=== PATIENT | female | born 1965 | race Caucasian/White ===

== ENCOUNTER 2024-11-30 11:13 | Inpatient (IN) | payer OTHER, BC ==
[~2024-11-30] VITALS: Ht 154.9 cm; Wt 96.7 kg
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
[2024-11-30 12:34] LABS: MEAN PLATELET VOLUME 7.0 FL (7.4-10.4); RED CELL DISTRIBUTION WIDTH 14.2 % (11.5-14.5)
--- NOTE | 2024-11-30 12:40 | ELECTROCARDIOGRAPH REPORT ---
[facility] Test Date: 2024-11-30 Test Time: 12:38:03 Pat Name: GREGORY GRACE Department: [facility]- Patient ID: [facility]-[id number] Room: [place] [id number] Gender: F [employer] Maintenance Chief: : 1965 Requested By: DEEJAY RENDON Order Number: [id number] Reading MD: Dr. Klaus Goodman Measurements Intervals [place] Rate: 78 P: 37 OK: 161 QRS: 41 QRSD: 103 T: -10 QT: 422 QTc: 481 Interpretive Statements Sinus rhythm Probable left atrial enlargement Low voltage, precordial leads RSR' in V1 or V2, probably normal variant Borderline T abnormalities, inferior leads Electronically Signed On 12-03-2024 7:41:[address] Klaus Goodman Please click the below link to view image of tracing.
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
[2024-11-30 12:56] LABS: CREATINE KINASE MB 40.8 ng/ml (0.3-3.6); CREATININE 0.66 MG/DL (0.40-0.90); ETHANOL < 10 MG/DL (<10); TOTAL CARBON DIOXIDE 26.6 MMOL/L (24-32); eCRCL 69 ML/MIN; eGFR > 90 ML/MIN
[2024-11-30 13:01] LABS: APTT 29 SECONDS (22-32); INR 1.1 INR
[2024-11-30] MEDS ORDERED: magnesium sulf-water 2g/50mL 50 ML IV PRN (14:45)
[2024-11-30] MEDS ORDERED: magnesium Cl slow-release 64mg tablet PO PRN (14:45)
[2024-11-30] MEDS ORDERED: magnesium hydroxide 30ml (MOM) UD suspension PO PRN (14:45)
[2024-11-30] MEDS ORDERED: mag hydrox/Alum hydrox/simeth 30ml oral suspension PO PRN (14:45)
[2024-11-30] MEDS ORDERED: potassium Cl 40MEQ/1/2NS 520ml 520 ML IV PRN (14:45)
[2024-11-30] MEDS ORDERED: magnesium sulf-water 4G/100mL 100 ML IV PRN (14:45)
[2024-11-30] MEDS ORDERED: potassium Cl 20 mEq SR tablet PO PRN (14:45)
[2024-11-30] MEDS: PERFLUTREN PROTEIN-A MICROSPHR (Optison) 0.22 MG/ML 3ML VIAL IV ONE (14:55)
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
[2024-11-30 15:20] LABS: PRO BRAIN NATRIURETIC PEPTIDE 99 PG/ML (0-125)
[2024-11-30 15:21] LABS: LEUKOCYTE ESTERASE ,URINE NEGATIVE (Neg); NITRITES, URINE NEGATIVE (Neg); OCCULT BLOOD,URINE NEGATIVE (Neg)
[2024-11-30 15:22] LABS: UA COLLECTION TYPE CLN CATCH MIDSTREAM
--- NOTE | 2024-11-30 15:29 | RADIOLOGY REPORT ---
DI CHEST,TWO VIEWS, HISTORY: Metabolic encephalopathy COMPARISON: None None TECHNICAL DATA: 1 view of the chest was obtained. FINDINGS: Lines and tubes: None Cardiomediastinal silhouette: normal Pulmonary vasculature: normal Lung expansion: normal Lung airspace: normal Lung interstitium: normal Pleura: normal Pneumothorax: no Bones: Unremarkable Other: no IMPRESSION: No acute intrathoracic abnormality.
[2024-11-30 15:39] LABS: URINE AMPHETAMINE SCREEN NEGATIVE (Neg); URINE BARBITUATE SCREEN NEGATIVE (Neg); URINE BENZODIAZEPINES SCREEN POSITIVE (Neg); URINE CANNABINOID SCREEN NEGATIVE (Neg); URINE COCAINE SCREEN NEGATIVE (Neg); URINE METHADONE SCREEN NEGATIVE (Neg); URINE OPIATE SCREEN NEGATIVE (Neg); URINE PHENCYCLIDINE SCREEN NEGATIVE (Neg)
[2024-11-30] MEDS ORDERED: morphine 4 MG/ML inj SYRINge IV PRN (15:47)
[2024-11-30] MEDS: ondansetron/PF 4mg/2ml inj IV PRN (15:56)
[2024-11-30] MEDS: morphine 4 MG/ML inj SYRINge IV PRN (15:57)
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
[2024-11-30] MEDS: normal saline 1000ml 1,000 ML IV SCH (17:05)
[2024-11-30] MEDS: HYDROcodone/acetaminophen 5mg/325mg tablet PO PRN (19:19)
[2024-11-30] MEDS ORDERED: TRAM50TA2 PO (19:22)
[2024-11-30 20:00] VITALS: BP_SYST 133; BP_SYST 140; BP_SYST 147; BP_DIAS 72; BP_DIAS 96; BP_DIAS 97; PULSE 73; PULSE 74; PULSE 81
[2024-11-30] MEDS: docusate sod 100mg capsule PO SCH (20:00)
[2024-11-30] MEDS: K and/or MAG REPLACEMENT MC SCH (20:00)
[2024-11-30] MEDS ORDERED: heparin, porcine 5000 units/ml vial SQ SCH (20:00)
[2024-11-30 21:20] VITALS: BP 140/78; PULSE 97; RESP 13; TEMP 97.5; O2SAT 99
[2024-11-30 21:25] VITALS: RESP 13; O2SAT 99
[2024-11-30] MEDS: potassium Cl 20 mEq SR tablet PO PRN (21:50)
[2024-12-01] VITALS (9 sets, daily range): BP systolic 135–162; BP diastolic 69–96; PULSE 71–88; RESP 12–16; TEMP 97–98.4; O2SAT 94–99
[2024-12-01 06:02] LABS: MEAN PLATELET VOLUME 7.3 FL (7.4-10.4); RED CELL DISTRIBUTION WIDTH 14.2 % (11.5-14.5)
[2024-12-01 06:28] LABS: CHOL/HDL RATIO 5.4 (0.00-4.99); CREATININE 0.60 MG/DL (0.40-0.90); LDL CHOLESTEROL 153 MG/DL (50-100); TOTAL CARBON DIOXIDE 28.5 MMOL/L (24-32); eCRCL 76 ML/MIN; eGFR > 90 ML/MIN
[2024-12-01 10:07] LABS: ABSOLUTE RETICS # 23000 /CUMM (23000-93000)
--- NOTE | 2024-12-01 10:11 | RADIOLOGY REPORT ---
CLINICAL HISTORY: Encephalopathy vs seizure vs contusion TECHNIQUE: Routine multiplanar imaging of the brain was performed without gadolinium contrast. COMPARISON: CT CT HEAD on DOS: 11/30/24 FINDINGS: There is no abnormal restricted diffusion to suggest acute infarction. There are a few scattered punctate foci of T2 hyperintensity within the white matter both cerebral hemispheres, of doubtful clinical significance. The moderate-sized right parietal scalp soft tissue hematoma. Coronal images demonstrate no definite abnormal hippocampal volume loss/signal. There is no evidence for acute ischemic changes, mass, mass effect, or extra- axial fluid collection. There is no hydrocephalus or midline shift. The cerebral sulci and subarachnoid cisterns are not effaced. The imaged paranasal sinuses are clear. The globes are intact. The midline structures, including the corpus callosum, are unremarkable. The intracranial flow voids are maintained. IMPRESSION: No acute intracranial abnormality seen. No evidence for acute infarct. Moderate-sized right parietal scalp soft tissue hematoma.
--- NOTE | 2024-12-01 13:45 | PROCEDURE NOTE ---
Procedure Note Providers to CC ~ Description: [place] EEG Note # Demographics Type of EEG Read: - Routine EEG - video Patient Location: - Inpatient - STAT read requested First Name: Ivet Last Name: Campos Date of : 1965 Age: 59 Gender: Female Facility: [facility] Time of Initial Page (): 12/01/2024 11:31 First Contact with Site (): 12/01/2024 11:40 # EEG Interpretation Start Time of EEG Read (): 12/01/2024 10:48 Stop Time of EEG Read (): 12/01/2024 12:01 Duration: 1h 13m Technical Details: - The EEG electrodes were placed using the standard International 10-20 system of electrode placement. Video and an accessory EKG lead were used during the course of this study. - This study was recorded using the [employer] EEG software Indication: - altered mental status # Description Photic Stimulation: Performed Hyperventilation: NOT performed Phases Captured: - awake - drowsy - sleep Predominant Frequencies: During wakefulness, the background activity demonstrates a well-formed, symmetric posterior dominant rhythm (PDR) in the alpha frequency range (typically 810 Hz), maximal over the occipital regions, with appropriate attenuation upon eye opening and reappearance with eye closure. The anterior- posterior gradient is preserved, and no abnormal asymmetries or focal slowing are identified. During drowsiness (Stage I sleep), there is a gradual attenuation of the alpha rhythm, replaced by low-amplitude mixed-frequency theta activity, along with the appearance of vertex sharp transients and slow eye movements. Stage II was not captured. The background remains symmetric and reactive throughout the recording, with no focal abnormalities or generalized slowing noted during any state. Reactivity: yes Variability: yes Continuity: continuous EKG: NSR # Abnormalities Stimulation: - photic stimulation does NOT cause abnormalities Epileptiform Abnormalities: - NOT present Focal Slowing: no Seizure: - NOT present Artifact: muscle and movement # Impression Impression: normal # Clinical Correlation Clinical Correlation: A normal EEG does not exclude nor support the diagnosis of epilepsy. Additional Comments: Clinical correlation is recommended. # Log[employer] Telemedicine: remote EEG review: EEG reviewed remotely # Demographics First Name: Ivet Last Name: Campos Facility: [facility] DESTINY FLOYD MD Dec 01, 2024 13:45
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
--- NOTE | 2024-12-01 18:33 | CARDIOLOGY REPORT ---
APPROVED REPORT EXAM: Comprehensive 2D, Doppler, and color-flow Echocardiogram. Patient Location: 3024B Blood Pressure: 135/99 mmHg Heart Rate: 74 bpm Rhythm: Sinus Indications CVA (Bubble Study not ordered) Hypertension NO COMPUTATIONAL SCIENTIST NO Previous ECHO 2D Dimensions LA Diam 3.3 cm IVSd 0.7 (0.7-1.1cm) LVDd 5.0 cm PWd 0.9 (0.7-1.1cm) IVSs 1.2 (0.8-1.2cm) LVDs 2.8 (2.5-4.0cm) PWs 1.3 (0.8-1.2cm) LVOT Diameter 2.09 (1.8-2.4cm) LVEF(%) 74.3 (>50%) Ao Asc Diam. 3.09 cm IVC 16.76 mm FS (%) 43.4 % SV 87.6 ml CO 6.4 L/min M-Mode Dimensions Left Atrium(MM) 3.53 (2.5-4.0cm) Aortic Root 3.02 (2.2-3.7cm) MV EPSS 0.3 (<0.5cm) Aortic Valve AoV Peak Lenny. 157.8 cm/s AoV VTI 27.7 cm AO Peak GR. 10.0 mmHg AO Mean GR. 6 mmHg LVOT VTI 30.32 cm LVOT Peak Lenny. 130.6 cm/s ISHAAN(VTI)/BSA 3.75 cm2/m2 ISHAAN (VTI) 3.75 cm2 AV DI 1.10 % Mitral Valve MV E Velocity 54.3 cm/s MV Peak Gr. 2 mmHg MV DECEL TIME 316 ms MV A Velocity 61.8 cm/s MV PHT 128 ms E/A Ratio 0.9 MVA (PHT) 1.72 cm2 MV VMax 64.8 cm/s TDI Lateral E' P. V 10.90 cm/s E/Lateral E' 5.0 Tricuspid Valve TR P. Velocity 240 cm/s RAP ESTIMATE 10 mmHg TR Peak Gr. 23 mmHg RVSP 33 mmHg LEFT VENTRICLE Normal LV size and wall thickness. Overall systolic function is normal. LVEF is 70-75%. RIGHT VENTRICLE RV is normal size and function. Elevated right heart pressures with an RVSP of 33 mmHg. ATRIA The left atrium size is normal. AORTIC VALVE Trileaflet AV appears milldy sclerotic without stenosis. No insufficiency. MITRAL VALVE Mild mitral annular calcification without stenosis. TRICUSPID VALVE The tricuspid valve is normal in structure with mild regurgitation. PULMONIC VALVE Pulmonic valve is grossly normal in structure without insufficiency. GREAT VESSELS The aortic root is normal in size. The ascending aorta is normal in size. The IVC is normal in size and collapses >50% with inspiration. PERICARDIUM Normal pericardium. No effusion. Anterior epicardial fat pad is present. Other Information Study Quality: Adequate Conclusion Normal LV size and wall thickness. Overall systolic function is normal. LVEF is 70-75%. RV is normal size and function. Elevated right heart pressures with an RVSP of 33 mmHg. The left atrium size is normal. Trileaflet AV appears milldy sclerotic without stenosis. No insufficiency. Mild mitral annular calcification without stenosis. The tricuspid valve is normal in structure with mild regurgitation. Pulmonic valve is grossly normal in structure without insufficiency. Normal pericardium. No effusion. Anterior epicardial fat pad is present.
[2024-12-01] MEDS: acetaminophen 1,000mg/100ml IV 100 ML IV ONE (19:32)
[2024-12-01] MEDS: GADOTERATE MEGLUMINE 7.5 MMOL/15 ML VIAL IV ONE (21:07)
[2024-12-02] VITALS (7 sets, daily range): BP systolic 124–178; BP diastolic 72–115; PULSE 67–102; RESP 13–16; TEMP 96.9–98.4; O2SAT 96–98
[2024-12-02] MEDS: ketorolac trometh 15mg/ml vial 15 MG/ML ML IV PRN (01:29)
[2024-12-02 05:44] LABS: MEAN PLATELET VOLUME 7.2 FL (7.4-10.4); RED CELL DISTRIBUTION WIDTH 14.5 % (11.5-14.5)
[2024-12-02 06:04] LABS: CREATININE 0.48 MG/DL (0.40-0.90); TOTAL CARBON DIOXIDE 26.4 MMOL/L (24-32); eCRCL 95 ML/MIN; eGFR > 90 ML/MIN
[2024-12-02] MEDS: cyanocobalamin 500mcg tablet PO SCH (08:09)
[2024-12-02] MEDS ORDERED: ACET-1008 PO (10:29)
[2024-12-02] MEDS ORDERED: CYAN500T71 PO (10:33)
[2024-12-02] MEDS ORDERED: LISI10TA27 PO (10:33)
[2024-12-02] MEDS ORDERED: FOLI0.4T3 PO (10:33)
[2024-12-02] MEDS ORDERED: ATOR20TA66 PO (10:33)
--- NOTE | 2024-12-02 11:12 | ELECTROCARDIOGRAPH REPORT ---
[facility] Test Date: 2024-12-02 Test Time: 11:09:55 Pat Name: GREGORY GRACE Department: [facility] 3S [id number] Room: [place] [id number] B Gender: F [employer]: : 1965 Requested By: EUNICE MELGAR Order Number: [id number] Reading MD: Dr. MARTIN Ha Measurements Intervals [place] Rate: 153 P: 0 RI: 0 QRS: 73 QRSD: 85 T: 254 QT: 281 QTc: 449 Interpretive Statements Atrial fibrillation Repolarization abnormality, prob rate related Electronically Signed On 12-02-2024 16:51:[address] MARTIN Ha Please click the below link to view image of tracing.
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
[2024-12-02] MEDS: metoprolol succinate 25mg (24-HOUR) SR. Tablet PO SCH (20:16)
[2024-12-03 02:00] VITALS: BP 137/84; PULSE 61; RESP 13; TEMP 97.1; O2SAT 96
[2024-12-03 06:59] LABS: MEAN PLATELET VOLUME 7.2 FL (7.4-10.4); RED CELL DISTRIBUTION WIDTH 13.9 % (11.5-14.5)
[2024-12-03 07:09] LABS: CREATININE 0.55 MG/DL (0.40-0.90); TOTAL CARBON DIOXIDE 28.7 MMOL/L (24-32); eCRCL 83 ML/MIN; eGFR > 90 ML/MIN
[2024-12-03 08:44] VITALS: BP_SYST 133
[2024-12-03] MEDS ORDERED: METO-395 PO (10:37)
--- NOTE | 2024-12-03 14:11 | RADIOLOGY REPORT ---
ULTRASOUND SOFT TISSUE HEAD AND NECK CLINICAL INDICATION: Thyroid ultrasound. New onset AFib, concern for thyroid nodules. TECHNIQUE: Multiple real time sonographic images of the thyroid were obtained. FINDINGS: The right thyroid gland measures 4 x 2 x 2 cm. The left thyroid gland measures approximately 5 x 1 x 1 cm. The isthmus measures 0.3 cm. Bilateral TI-RADS 2 nodules measuring 2 mm in the right upper lobe, 4 mm in the right middle lobe, and 3 mm in the left upper lobe.. IMPRESSION: 1. Bilateral TI-RADS 2 nodules measuring 2 mm in the right upper lobe, 4 mm in the right middle lobe, and 3 mm in the left upper lobe.. No follow-up is recommended. These represent colloid cysts
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
== END 2024-12-03 13:56 | disposition home or self-care (01) | DRG 72 ==
LOC: ER 11:15 → ED HOLD 14:06 → PCU 3S 21:04
PROVIDERS: ADMIT Family Medicine; ATTEND Family Medicine
PROC: 4A10X4Z Monitoring of Central Nervous Electrical Activity, External Approach (ICD-10-PCS; principal; 2024-12-01)
DX: G93.41 Metabolic encephalopathy (principal); S00.03XA Contusion of scalp, initial encounter; T42.4X5A Adverse effect of benzodiazepines, initial encounter; I48.0 Paroxysmal atrial fibrillation; E78.5 Hyperlipidemia, unspecified; I10 Essential (primary) hypertension; V89.2XXA Person injured in unspecified motor-vehicle accident, traffic, initial encounter; Y93.89 Activity, other specified; Y92.89 Other specified places as the place of occurrence of the external cause; Y99.8 Other external cause status
CPT/HCPCS: 36415; 70450; 70553; 71046; 72125; 76536; 80048; 80061; 80076; 80305; 80320; 81003; 82140; 82550; 82553; 82607; 83036; 83690; 83735; 83880; 84145; 84443; 84484; 85025; 85027; 85045; 85610; 85651; 85730; 87081; 93005; 93306; 95816; 99285; A6258; G0378; J0131; J1885; J2270; J2405; J7030; L0172